=== PATIENT | female | born 1960 | race Two or more races ===

== ENCOUNTER 2022-03-01 20:25 | Emergency (ER) | payer SELFPAY ==
[~2022-03-01] VITALS: Ht 160 cm; Wt 81.8 kg
[2022-03-01 21:32] LABS: BASOPHILS % (AUTO) 0.6 % (0.0-2.0); EOSINOPHILS % (AUTO) 1.2 % (1.0-6.0); LYMPHOCYTES # (AUTO) 1.6 K/uL (1.0-4.8); LYMPHOCYTES % (AUTO) 30.6 % (22.0-44.0); MEAN CORPUSCULAR HEMOGLOBIN 31.2 pg (26.0-34.0); MEAN CORPUSCULAR HGB CONC 34.2 G/dL (31.0-37.0); MEAN CORPUSCULAR VOLUME 91 fL (80-100); MONOCYTES # (AUTO) 0.5 K/uL (0.1-1.0); MONOCYTES % (AUTO) 8.8 % (2.0-9.0); NEUTROPHILS # (AUTO) 3.1 K/uL (1.8-7.7); NEUTROPHILS % (AUTO) 58.8 % (40.0-70.0); PLATELET COUNT (AUTO) 273 K/uL (150-450); RED CELL DISTRIBUTION WIDTH 13.1 % (11.5-14.5)
[2022-03-01 21:41] LABS: ANION GAP 10 mmol/L (8-16); CALCIUM, TOTAL 9.1 mg/dL (8.8-10.5); CARBON DIOXIDE 26 mmol/L (22-29); CHLORIDE 106 mmol/L (98-107); CREATININE 0.67 mg/dL (0.60-1.30); GLUCOSE,RANDOM 104 mg/dL (70-110); POTASSIUM 3.9 mmol/L (3.5-5.1); SODIUM SERUM 142 mmol/L (136-145); UREA NITROGEN, BLOOD 11 mg/dL (7-18)
[2022-03-01 21:42] LABS: GLOMERULAR FILTR. RATE CALC > 60 mL/min (>60)
[2022-03-01] MEDS ORDERED: MECLIZINE HCL 25 MG TABLET PO ONE (21:45)
[2022-03-01 22:00] VITALS: BP 129/74
[2022-03-01] MEDS ORDERED: MECL-134 PO (22:09)
== END 2022-03-01 23:29 | disposition home or self-care (01) ==
LOC: EMS 20:25
DX: R42 Dizziness and giddiness (principal); K52.9 Noninfective gastroenteritis and colitis, unspecified; Z90.49 Acquired absence of other specified parts of digestive tract
CPT/HCPCS: 80048; 85025; 93005; 99284